=== PATIENT | female | born 1970 | race Caucasian/White ===

== ENCOUNTER 2019-05-02 21:21 | Emergency (ER) | payer MEDICAID ==
[~2019-05-02] VITALS: Ht 157.5 cm; Wt 63.0 kg
[2019-05-02 21:22] VITALS: BP 116/78
--- NOTE | 2019-05-02 21:24 | NUR ---
TO LOBBY A/W BED, AMBULATORY
--- NOTE | 2019-05-02 21:58 | NUR ---
PT AMBULATED TO BED 11
--- NOTE | 2019-05-02 22:10 | NUR ---
49 YO BIB SELF AND PRESENTS TO ED C/O 6/10 DULL LEFT EAR PAIN X 10 HOURS S/P PT GETTING HIT WITH A HEAVY SOUP CAN FALLING FROM AN UPPER CABINET. PT REPORTS PAIN THAT RADIATES FROM EAR INTO JAW AND ALSO C/O OF BITTER TASTE IN MOUTH. DENIES DIZZINESS, HEARING LOSS. -- PT AWAKE, ALERT, CALM, COOPERATIVE. ANSWERING QUESTIONS APPROPRIATELY. BEHAVIOR APPROPRIATE. -- SKIN PINK, WARM, DRY. BREATHING EVEN, UNLABORED. -- NO VISIBLE TRAUMA NOTED TO EAR/FACE. PMH-- DENIES RX-- DENIES
[2019-05-02] MEDS ORDERED: IBUPROFEN 800 MG TAB PO ONE (22:20)
[2019-05-02 22:30] VITALS: BP 118/70
== END 2019-05-02 22:30 | disposition home or self-care (01) ==
LOC: MED 21:21
DX: R51 Headache (principal); W20.8XXA Other cause of strike by thrown, projected or falling object, initial encounter; Y93.89 Activity, other specified; Y92.89 Other specified places as the place of occurrence of the external cause; Y99.8 Other external cause status
CPT/HCPCS: 99282

== ENCOUNTER 2022-04-27 11:24 | Emergency (ER) | payer MEDICAID ==
[~2022-04-27] VITALS: Ht 157.5 cm; Wt 60.8 kg
[2022-04-27 11:30] VITALS: BP 119/73
--- NOTE | 2022-04-27 11:34 | NUR ---
PT AMBULATED TO BED 01.
[2022-04-27] MEDS: ASPIRIN 81 MG TAB.CHEW PO ONE (11:58)
--- NOTE | 2022-04-27 12:05 | NUR ---
LAB AT PT BEDSIDE
[2022-04-27 12:31] LABS: BASOPHILS % (AUTO) 0.3 % (0.0-2.0); EOSINOPHILS # (AUTO) 0.1 K/uL (0-0.4); EOSINOPHILS % (AUTO) 0.9 % (0.0-4.0); HEMATOCRIT 40.6 % (36-48); HEMOGLOBIN 13.6 g/dL (12.0-16.0); LYMPHOCYTES # (AUTO) 2.1 K/uL (2.5-16.5); LYMPHOCYTES % (AUTO) 33.9 % (20.5-51.1); MEAN CORPUSCULAR HEMOGLOBIN 30 pg (27-31); MEAN CORPUSCULAR HGB CONC 34 g/dL (33-37); MEAN CORPUSCULAR VOLUME 90.1 fL (80-94); MONOCYTES # (AUTO) 0.3 K/uL (0.8-1.0); MONOCYTES % (AUTO) 4.8 % (1.7-9.3); NEUTROPHILS # (AUTO) 3.7 K/uL (1.8-7.7); NEUTROPHILS % (AUTO) 60.1 % (42.2-75.2); PLATELET COUNT (AUTO) 238 K/uL (140-450); RED BLOOD CELL COUNT(AUTO) 4.51 MIL/uL (4.20-5.40); RED CELL DISTRIBUTION WIDTH 13.4 % (11.6-13.7); WHITE BLOOD COUNT (AUTO) 6.2 K/uL (4.8-10.8)
--- NOTE | 2022-04-27 12:41 | NUR ---
DAYANARA GARCIA WALKED TO LAB
[2022-04-27 12:45] LABS: ANION GAP 12.2 (8-16); ASPARTATE AMINOTRANSFERASE 18 U/L (15-37); CARBON DIOXIDE 28.7 mmol/L (21-32); CHLORIDE 103 mmol/L (98-107); GFR ARICAN-AMERICAN 75 mL/min (>90); GLUCOSE 94 mg/dL (74-106); POTASSIUM 3.9 mmol/L (3.5-5.1); SODIUM SERUM 140 mmol/L (136-145); TOTAL BILIRUBIN 0.4 mg/dL (0.0-1.0); UREA NITROGEN, BLOOD 16 mg/dL (7-18)
[2022-04-27 12:55] LABS: ALBUMIN 3.8 g/dL (3.4-5.0)
[2022-04-27] MEDS ORDERED: LEVO-315 PO (13:17)
[2022-04-27] MEDS ORDERED: PRED20TA5 PO (13:17)
[2022-04-27] MEDS ORDERED: PROM118S5 PO (13:17)
[2022-04-27] MEDS ORDERED: ALBU0.0912 INH (13:17)
--- NOTE | 2022-04-27 14:33 | NUR ---
PT RESTING IN NO APPARENT DISTRESS, BREATHING EVEN AND UNLABORED.
[2022-04-27 15:29] VITALS: BP 111/70
--- NOTE | 2022-04-27 15:29 | NUR ---
Patient discharged with v/s stable. Written and verbal after care instructions ABOUT COVID-19 AND COMMUNITY ACQUIRED PNEUMONIA given and explained. Patient alert, oriented and verbalized understanding of instructions. Ambulatory with steady gait. All questions addressed prior to discharge. ID band removed. Patient advised to follow up with PMD. Rx of ALBUTEROL SULFATE, LEVOFLOXACIN, PREDNISONE, AND PROMETHAZINE DM SYRUP given. Patient educated on indication of medication including possible reaction and side effects. Opportunity to ask questions provided and answered.
== END 2022-04-27 15:29 | disposition home or self-care (01) ==
LOC: MED 11:24
DX: J18.9 Pneumonia, unspecified organism (principal); Z20.822 Contact with and (suspected) exposure to COVID-19; R09.1 Pleurisy; Z79.899 Other long term (current) drug therapy; Z79.2 Long term (current) use of antibiotics
CPT/HCPCS: 36415; 71045; 80053; 84484; 85025; 85379; 93005; 99285

== ENCOUNTER 2022-05-07 14:49 | Emergency (ER) | payer MEDICAID ==
[~2022-05-07] VITALS: Ht 154.9 cm; Wt 61.2 kg
[~2022-05-07 14:49] MED LIST: ALBU0.0912 INH; LEVO-315 PO; PRED20TA5 PO; PROM118S5 PO
[2022-05-07 15:00] VITALS: BP 120/84
[2022-05-07 16:38] LABS: BASOPHILS % (AUTO) 0.4 % (0.0-2.0); EOSINOPHILS # (AUTO) 0.1 K/uL (0-0.4); EOSINOPHILS % (AUTO) 1.7 % (0.0-4.0); HEMATOCRIT 40.4 % (36-48); HEMOGLOBIN 13.5 g/dL (12.0-16.0); LYMPHOCYTES % (AUTO) 40.7 % (20.5-51.1); MEAN CORPUSCULAR HEMOGLOBIN 30 pg (27-31); MEAN CORPUSCULAR HGB CONC 34 g/dL (33-37); MEAN CORPUSCULAR VOLUME 90.6 fL (80-94); MONOCYTES # (AUTO) 0.6 K/uL (0.8-1.0); NEUTROPHILS # (AUTO) 3.6 K/uL (1.8-7.7); NEUTROPHILS % (AUTO) 49.2 % (42.2-75.2); PLATELET COUNT (AUTO) 246 K/uL (140-450); RED BLOOD CELL COUNT(AUTO) 4.45 MIL/uL (4.20-5.40); RED CELL DISTRIBUTION WIDTH 13.8 % (11.6-13.7); WHITE BLOOD COUNT (AUTO) 7.3 K/uL (4.8-10.8)
--- NOTE | 2022-05-07 16:38 | NUR ---
PT AMBULATED TO BED 04.
[2022-05-07 17:22] LABS: ANION GAP 8.7 (8-16); ASPARTATE AMINOTRANSFERASE 23 U/L (15-37); CARBON DIOXIDE 30.8 mmol/L (21-32); CHLORIDE 104 mmol/L (98-107); CREATININE 0.7 mg/dL (0.6-1.3); GFR ARICAN-AMERICAN 114 mL/min (>90); GLUCOSE 101 mg/dL (74-106); POTASSIUM 3.5 mmol/L (3.5-5.1); SODIUM SERUM 140 mmol/L (136-145); TOTAL BILIRUBIN 0.4 mg/dL (0.0-1.0); UREA NITROGEN, BLOOD 13 mg/dL (7-18)
[2022-05-07] MEDS ORDERED: MUC600 PO (18:09)
[2022-05-07] MEDS ORDERED: IBUP-2213 PO (18:09)
[2022-05-07] MEDS ORDERED: IBUPROFEN 400 MG TAB PO ONE (18:25)
[2022-05-07] MEDS ORDERED: BENZONATATE 100 MG CAPLF PO ONE (18:25)
[2022-05-07 19:02] VITALS: BP 120/72
--- NOTE | 2022-05-07 19:04 | NUR ---
Patient discharged with v/s stable. Written and verbal after care instructions given FOR UPPER RESPIRATORY INFECTION and explained. Patient alert, oriented and verbalized understanding of instructions. Ambulatory with steady gait. All questions addressed prior to discharge. ID band removed. Patient advised to follow up with PMD. Rx of GUAIFENESIN AND IBUPROFEN given. Patient educated on indication of medication including possible reaction and side effects. Opportunity to ask questions provided and answered.
== END 2022-05-07 19:00 | disposition home or self-care (01) ==
LOC: MED 14:49
DX: R07.89 Other chest pain (principal); Z86.16 Personal history of COVID-19; Z79.1 Long term (current) use of non-steroidal anti-inflammatories (NSAID); Z79.899 Other long term (current) drug therapy; Z79.2 Long term (current) use of antibiotics
CPT/HCPCS: 36415; 71045; 80053; 84484; 85025; 93005; 99285